=== PATIENT | female | born 1950 | race Caucasian/White ===

== ENCOUNTER 2016-10-22 16:01 | Outpatient (CLI) | payer MEDICARE, OTHER | END 2016-10-22 16:02 | disposition home or self-care (01) | DX: Z72.89 Other problems related to lifestyle (principal) ==

== ENCOUNTER 2016-11-16 12:45 | Outpatient (CLI) | payer MEDICARE, OTHER | END 2016-11-16 12:46 | disposition home or self-care (01) | DX: M85.88 Other specified disorders of bone density and structure, other site (principal); Z78.0 Asymptomatic menopausal state ==

== ENCOUNTER 2016-11-22 10:27 | Emergency (ER) | payer MEDICARE, OTHER ==
[2016-11-22] MEDS ORDERED: DEXAMETHASONE 10 MG/ML VIAL ONE (12:09)
[2016-11-22] MEDS ORDERED: CHERRY SYRUP 10 ML UDC PO ONE (12:09)
[2016-11-22] MEDS ORDERED: DEXAMETHASONE 10 MG/ML VIAL PO STA (12:09)
== END 2016-11-22 12:21 | disposition home or self-care (01) ==
DX: H66.001 Acute suppurative otitis media without spontaneous rupture of ear drum, right ear (principal); I10 Essential (primary) hypertension; Z79.82 Long term (current) use of aspirin
CPT/HCPCS: 71020; 99283; A9270

== ENCOUNTER 2017-02-23 15:08 | Outpatient (CLI) | payer MEDICARE, OTHER | END 2017-02-23 15:09 | disposition home or self-care (01) | DX: M25.571 Pain in right ankle and joints of right foot (principal); M16.11 Unilateral primary osteoarthritis, right hip ==

== ENCOUNTER 2017-03-12 12:31 | Outpatient (CLI) | payer MEDICARE, OTHER ==
--- NOTE | 2017-03-12 15:30 | XRAY Report ---
THREE VIEW LUMBAR SPINE: 03/12/2017 CLINICAL INDICATION: Back pain. FINDINGS: AP, lateral, and coned down views of the lumbar spine demonstrate degenerative disk and fa cet disease, with disk space narrowing worst at L5-S1, stable from 09/06/2009. There is no evidence o f interval fracture or subluxation. IMPRESSION: STABLE DEGENERATIVE CHANGES. NO EVIDENCE OF INTERVAL FRACTURE. JOB #: [id number] EXT JOB #:[id number]
== END 2017-03-12 12:32 | disposition home or self-care (01) ==
LOC: DI 12:31
PROVIDERS: ATTEND Physician Assistant Medical
DX: M51.36 Other intervertebral disc degeneration, lumbar region (principal); M47.896 Other spondylosis, lumbar region
CPT/HCPCS: 72100

== ENCOUNTER 2017-03-26 13:18 | Outpatient (CLI) | payer MEDICARE, OTHER ==
--- NOTE | 2017-03-26 16:03 | MRI Report ---
EXAM: MRI LUMBAR SPINE WITHOUT CONTRAST EXAM DATE: 03/26/2017 01:30 PM. CLINICAL HISTORY: Low back pain. Right buttock pain. Lumbar radiculopathy. Right lower extremity numb ness. COMPARISON: None. TECHNIQUE: Multiplanar, multisequence T1-weighted and fluid-sensitive sequences of the lumbar spine f rom T12 to S1 without contrast. Other: None. FINDINGS: Spinal Cord: The conus terminates at L1. No signal abnormality in the visualized spinal cord. Alignment: Minimal to mild degenerative L2 on L3 retrolisthesis. Bone Marrow: Five cwl-izk-apzyeol lumbar vertebral bodies are assumed. Incidental L2 vertebral body h emangioma. Mild to moderate chronic L5-S1 level typed 2 degenerative endplate signal changes. Disk Levels/Facets: T12-L1: Unremarkable. L1-L2: Unremarkable. L2-L3: Mild degenerative disk disease and facet arthropathy. Anterior marginal spurring. Broad-based disk bulge extending laterally into both foramina. Minimal foraminal stenosis, no intraforaminal nerv e root impingement. Patent central canal. L3-L4: Minimally narrowed disk space. Unremarkable facets. Shallow diffuse annular disk bulge, no foc al extrusion. No stenosis. L4-L5: Mild degenerative disk disease. Mild/moderate facet arthropathy. Minimal diffuse annular disk bulge. No focal disk extrusion. Patent central canal. Mild bilateral foraminal stenosis without evide nce for intraforaminal nerve root compression. L5-S1: Moderate degenerative disk disease. Unremarkable facets. Shallow diffuse annular disk bulge. M inimal marginal spurring. Widely patent central canal. Mild to moderate bilateral foraminal stenosis right greater than left. Musculature: Mild diffuse posterior paraspinal muscle fatty atrophy. Other: None. IMPRESSION: 1. Relatively mild degenerative foraminal stenosis is present at multiple lumbar levels, this is most prominent at L5-S1, right greater than left. 2. Moderately prominent chronic degenerative disk disease at L5-S1. 3. Minimal to mild degenerative L2 on L3 retrolisthesis. 4. Mild broad-based bulges at multiple levels but no evidence for acute or focal extruded disk fragme nt. 5. No lumbar central canal stenosis. 6. Multilevel relatively mild lumbar facet arthropathy most prominent at the L2-L3 and L4-L5 levels. Comment: The following findings are so common in adults without low back pain that while we report th eir presence, they must be interpreted with caution and in the context of the clinical situation. (Re ki Madsen et al, Spine 2001) Prevalence of findings in patients without low back pain: Disk degeneration (any evidence): 92% Disk desiccation/T2 signal loss: 83% Disk height loss: 56% Disk bulge: 64% Disk protrusion: 32% Annular tear/high intensity zone: 38% [facility] Referring Provider Line: [phone] SITE ID: [id number]
== END 2017-03-26 13:19 | disposition home or self-care (01) ==
LOC: DI 13:18
PROVIDERS: ATTEND Physician Assistant Medical
DX: M51.36 Other intervertebral disc degeneration, lumbar region (principal); M51.37 Other intervertebral disc degeneration, lumbosacral region; M43.17 Spondylolisthesis, lumbosacral region; M47.896 Other spondylosis, lumbar region
CPT/HCPCS: 72148

== ENCOUNTER 2017-08-20 06:12 | Outpatient (CLI) | payer MEDICARE, OTHER ==
[2017-08-20 06:44] LABS: BASOPHILS # (AUTO) 0.1 10^3/uL (0.0-0.1); BASOPHILS % (AUTO) 1.1 %; EOSINOPHILS # (AUTO) 0.3 10^3/uL (0.0-0.7); EOSINOPHILS % (AUTO) 6.6 %; HCT - HEMATOCRIT 42.6 % (37.0-47.0); HGB - HEMOGLOBIN 14.4 g/dL (12.0-16.0); LYMPHOCYTES # (AUTO) 1.3 10^3/uL (1.5-3.5); LYMPHOCYTES % (AUTO) 28.4 %; MEAN CORPUSCULAR HEMOGLOBIN 31.1 pg (27.0-31.0); MEAN CORPUSCULAR HGB CONC 33.8 g/dL (32.0-36.0); MEAN CORPUSCULAR VOLUME 91.9 fL (81.0-99.0); MONOCYTES # (AUTO) 0.4 10^3/uL (0.0-1.0); MONOCYTES % (AUTO) 8.5 %; NEUTROPHILS # (AUTO) 2.5 10^3/uL (1.5-6.6); NEUTROPHILS % (AUTO) 55.4 %; RED BLOOD COUNT 4.64 10^6/uL (4.20-5.40); RED CELL DISTRIBUTION WIDTH 12.6 % (12.0-15.0); UNCORRECTED WHITE BLOOD COUNT 4.5 x10^3/uL; WHITE BLOOD COUNT 4.5 x10^3/uL (4.8-10.8)
[2017-08-20 06:58] LABS: ALBUMIN/GLOBULIN RATIO 1.4 (1.0-2.2); BILIRUBIN,TOTAL 0.5 mg/dL (0.2-1.0); BUN - BLOOD UREA NITROGEN 26 mg/dL (6-20); CALCIUM 9.8 mg/dL (8.5-10.3); CARBON DIOXIDE - CO2 26 mmol/L (21-32); CHLORIDE 106 mmol/L (101-111); CHOL/HDL RATIO 2.7 (<4.4); CHOLESTEROL 170 mg/dL; CREATININE 0.6 mg/dL (0.4-1.0); GFR - MDRD 100 (>89); GLUCOSE 110 mg/dL (70-100); HDL CHOLESTEROL 63 mg/dL; LDL/HDL RATIO 1.4 (<4.4); POTASSIUM 4.1 mmol/L (3.5-5.0); SODIUM 142 mmol/L (135-145); TRIGLYCERIDES 102 mg/dL; VLDL CHOLESTEROL 20 mg/dL
[2017-08-20 08:51] LABS: HEMOGLOBIN A1C 0.57 g/dL
== END 2017-08-20 06:13 | disposition home or self-care (01) ==
LOC: LAB 06:12
PROVIDERS: ATTEND Nurse Practitioner Primary Care
DX: M81.0 Age-related osteoporosis without current pathological fracture (principal); R73.9 Hyperglycemia, unspecified; I10 Essential (primary) hypertension; Z79.899 Other long term (current) drug therapy; E78.5 Hyperlipidemia, unspecified
CPT/HCPCS: 36415; 80053; 80061; 82306; 83036; 85025

== ENCOUNTER 2018-09-01 07:21 | Outpatient (CLI) | payer MEDICARE, OTHER ==
[2018-09-01 07:41] LABS: BASOPHILS % (AUTO) 0.5 %; EOSINOPHILS # (AUTO) 0.2 10^3/uL (0.0-0.7); EOSINOPHILS % (AUTO) 2.5 %; HGB - HEMOGLOBIN 14.6 g/dL (12.0-16.0); LYMPHOCYTES % (AUTO) 14.3 %; MEAN CORPUSCULAR HEMOGLOBIN 31.1 pg (27.0-31.0); MEAN CORPUSCULAR HGB CONC 33.7 g/dL (32.0-36.0); MEAN CORPUSCULAR VOLUME 92.2 fL (81.0-99.0); MEAN PLATELET VOLUME 8.3 fL (7.9-10.8); MONOCYTES # (AUTO) 0.8 10^3/uL (0.0-1.0); MONOCYTES % (AUTO) 11.5 %; NEUTROPHILS % (AUTO) 71.2 %; PLT - PLATELET COUNT 208 10^3/uL (130-450); RED BLOOD COUNT 4.69 10^6/uL (4.20-5.40); RED CELL DISTRIBUTION WIDTH 13.5 % (12.0-15.0)
[2018-09-01 07:54] LABS: ALBUMIN 4.6 g/dL (3.2-5.5); ALBUMIN/GLOBULIN RATIO 1.7 (1.0-2.2); ALKALINE PHOSPHATASE 92 IU/L (42-121); ALT ALANINE AMINOTRANSFERASE 29 IU/L (10-60); AST ASPARTATE AMINOTRANSFERASE 22 IU/L (10-42); BILIRUBIN,TOTAL 0.9 mg/dL (0.2-1.0); BUN - BLOOD UREA NITROGEN 18 mg/dL (6-20); CALCIUM 9.5 mg/dL (8.5-10.3); CARBON DIOXIDE - CO2 28 mmol/L (21-32); CHLORIDE 103 mmol/L (101-111); CHOL/HDL RATIO 2.6 (<4.4); CHOLESTEROL 183 mg/dL; CREATININE 0.6 mg/dL (0.4-1.0); GFR - MDRD 100 (>89); GLUCOSE 102 mg/dL (70-100); HDL CHOLESTEROL 70 mg/dL; LDL CHOLESTEROL,CALCULATED 99 mg/dL; LDL/HDL RATIO 1.4 (<4.4); SODIUM 138 mmol/L (135-145); TOTAL PROTEIN 7.3 g/dL (6.7-8.2); VLDL CHOLESTEROL 14 mg/dL
[2018-09-01 08:14] LABS: HB2 TOTAL 15.7 g/dL; HEMOGLOBIN A1C 0.56 g/dL; HEMOGLOBIN A1C % 5.4 % (4.6-6.2)
== END 2018-09-01 07:22 | disposition home or self-care (01) ==
LOC: LAB 07:21
PROVIDERS: ATTEND Nurse Practitioner Primary Care
DX: M81.0 Age-related osteoporosis without current pathological fracture (principal); R73.9 Hyperglycemia, unspecified; I10 Essential (primary) hypertension; Z79.899 Other long term (current) drug therapy; E78.2 Mixed hyperlipidemia
CPT/HCPCS: 36415; 80053; 80061; 82306; 83036; 83721; 85025

== ENCOUNTER 2018-11-10 14:55 | Outpatient (CLI) | payer MEDICARE, OTHER ==
--- NOTE | 2018-11-11 09:23 | DEXA Report ---
Reason: OSTEOPOROSIS Procedure Date: 11/10/2018 Accession Number: [id number] / [id number] Procedure: DEX - Dexa Spine and/or Hip CPT Code: FULL RESULT: EXAM: Dexa Spine and/or Hip DATE: 11/10/2018 4:16 PM CLINICAL HISTORY: OSTEOPOROSIS TECHNIQUE: Dual energy x-ray absorptiometry (DXA) was performed on a [employer] System. Regions measured are the AP Spine, femoral neck, and if needed forearm. COMPARISON: 11/16/2016. In accordance with the International Society for Clinical Densitometry (ISCD) guidelines, data from previous exams may be reanalyzed using current recommendations and techniques. This is done to allow a more accurate basis for comparison with the current study. FINDINGS: The data for the lumbar spine is as follows: BMD (g/cm/cm) T-SCORE Z-SCORE REGION L1 0.839 -2.4 -1.2 L2 0.937 -2.2 -1.0 L3 1.031 -1.4 -0.2 L4 1.004 -1.6 -0.4 TOTAL 0.960 -1.8 -0.6 NOTE: All evaluable vertebrae are used for classification The data for the hip is as follows: BMD (g/cm/cm) T-SCORE Z-SCORE REGION Neck 0.959 -0.6 0.7 TOTAL 0.968 -0.3 0.7 NOTE: The femoral neck or total proximal femur, whichever is lowest, is used for classification. DXA RESULTS SUMMARY: Spine SCAN DATE AGE BMD CHANGE VS CHANGE VS PREVIOUS PREVIOUS % [birth year][age]10/2018 [age] 0.960 -0.033* -3.3* 11/16/2016 [age] 0.993 * Denotes significant change at the 95% confidence level. Denotes dissimilar scan types or analysis methods. DXA RESULTS SUMMARY: Hip SCAN DATE AGE BMD CHANGE VS CHANGE VS PREVIOUS PREVIOUS % [birth year]10/2018 68.3 0.968 0.018 1.9 11/16/2016 66.3 0.950 * Denotes significant change at the 95% confidence level. Denotes dissimilar scan types or analysis methods. IMPRESSION: THE WHO CLASSIFICATION BASED ON THE INTERNATIONAL REFERENCE STANDARD IS OSTEOPENIA. THE FRACTURE RISK IS INCREASED. RECOMMENDATION: Patients with diagnosis of osteoporosis or osteopenia should have regular bone mineral density assessment. For those eligible for Medicare, routine testing is allowed once every 2 years. Testing frequency can be increased for patients who have rapidly progressing disease or for those who are receiving medical therapy to restore bone mass. COMMENT: World Health Organization (WHO) definitions for osteoporosis and osteopenia: NORMAL BMD: T-score at -1.0 or higher, fracture risk is low OSTEOPENIA BMD: T-score between -1.0 and -2.5, fracture risk is increased. OSTEOPOROSIS BMD: T-score at -2.5 or lower, fracture risk is high. National Osteoporosis Foundation recommends: 1. Obtain adequate dietary calcium (at least 1200 mg per day) and vitamin D (400-800 international units per day). 2. Participate, as appropriate, in regular weightbearing and muscle-strengthening exercise. 3. Avoid tobacco use and reduce alcohol and caffeine intake. 4. For more detailed information see the website at www.NOF.org.
== END 2018-11-10 14:56 | disposition home or self-care (01) ==
LOC: DI 14:55
PROVIDERS: ATTEND Nurse Practitioner Primary Care
DX: M85.88 Other specified disorders of bone density and structure, other site (principal); Z78.0 Asymptomatic menopausal state
CPT/HCPCS: 77080

== ENCOUNTER 2019-04-25 15:44 | Outpatient (CLI) | payer MEDICARE, OTHER ==
--- NOTE | 2019-04-26 12:17 | XRAY Report ---
Reason: PAIN IN BALL OF R FOOT Procedure Date: 04/25/2019 Accession Number: [id number] / [id number] Procedure: XR - Foot 3 View RT CPT Code: FULL RESULT: EXAM: RIGHT FOOT RADIOGRAPHY EXAM DATE: 04/25/2019 04:19 PM. CLINICAL HISTORY: Pain in ball of right foot. COMPARISON: None. TECHNIQUE: 3 views. FINDINGS: Bones: No significant calcaneal spurring is seen. Best seen on the oblique view is observation of sharp angulations of a portion of the sesamoid bones, and there are osteophytes plantar to the first metatarsophalangeal articulation. While this is not clearly demonstrated, this can be seen with sesamoid fracture. No other fracture or dislocation is identified. Joints: Normal. No subluxations. Soft Tissues: No radiopaque foreign body or soft tissue gas. No soft tissue swelling. IMPRESSION: Question potential fracture of a first metatarsophalangeal sesamoid. [facility]
== END 2019-04-25 15:45 | disposition home or self-care (01) ==
LOC: DI 15:44
PROVIDERS: ATTEND Podiatrist
DX: M79.671 Pain in right foot (principal)

== ENCOUNTER 2021-03-25 14:17 | Outpatient (CLI) | payer MEDICARE, OTHER ==
--- NOTE | 2021-03-25 15:53 | DEXA Report ---
PROCEDURE: Dexa Spine and/or Hip INDICATIONS: DISORDER OF BONE DENSITY STRUCTURES OTHER SITE TECHNIQUE: Dual energy x-ray absorptiometry (DXA) was performed on a [employer] System. Regions measur ed are the AP Spine, femoral neck, and if needed forearm. COMPARISON: Dexa, 11/10/2018.. FINDINGS: Lumbar Spine: Bone Mineral Density 0.992 g/cm/cm,T score -1.6, osteopenic Left Hip: Bone Mineral Density 0.902 g/cm/cm,T score -0.8, normal Left Femoral Neck: Bone Mineral Density 0.934 g/cm/cm, T score -0.7, normal (T score greater or equal to -1.0: NORMAL) (T score from -1.1 to -2.4: OSTEOPENIA) (T score less than or equal to -2.5 to: OSTEOPOROSIS) Impression: Based on WHO criteria, the patient is osteopenic. Compared with the last exam on 9, the patient's bone mineral density of the lumbar spine is improved and bone mineral density of lef t hip is decreased. Patients with diagnosis of osteoporosis or osteopenia should have regular bone mineral density assess ment. For those eligible for Medicare, routine testing is allowed once every 2 years. Testing frequ ency can be increased for patients who have rapidly progressing disease or for those who are receivin g medical therapy to restore bone mass. Reviewed by: Raegan Barton MD on 03/25/2021 3:52 PM PDT Approved by: Raegan Barton MD on 03/25/2021 3:52 PM PDT Station ID: [id number]
== END 2021-03-25 14:18 | disposition home or self-care (01) ==
LOC: DI 14:17
PROVIDERS: ATTEND Internal Medicine
DX: M85.88 Other specified disorders of bone density and structure, other site (principal)

== ENCOUNTER 2021-06-06 16:23 | Emergency (ER) | payer MEDICARE, OTHER ==
[2021-06-06] MEDS ORDERED: ASPIRIN CHEW 81 MG TABLET PO STA (16:49)
[2021-06-06] MEDS ORDERED: LIDOCAINE VISCOUS 2% 15 ML UDC MM STA (16:50)
[2021-06-06] MEDS ORDERED: MAG HYDROX/AL HYDROX/SIMETH 30 ML UDC PO STA (16:50)
--- NOTE | 2021-06-06 16:51 | ED Physician Documentation ---
PD HPI CHEST PAIN - Stated complaint Stated Complaint: CP - Chief complaint Chief Complaint: Cardiac - History obtained from History obtained from: Patient - Additional information Additional information: 70-year-old woman with no known history of coronary disease, very remotely negative stress testing. Remote history of tobacco use, maybe 20 years 25 years ago. History of hypertension and hyperlipidemia. She had a hamburger around noon at about 1:00 developed substernal chest pressure which was nonradiating. It is milder now but still present to an extent. She is also had some nonexertional intermittent shortness of breath for the last week and a half which prompted a negative Covid test 5 days ago. No cough. No travel, no recent pedal edema, no calf pain. Pain is nonradiating. She had similar pains in the past which resolved with Tums, it did not this time. 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 - Present Medications Home Medications: Ambulatory Orders Medication Instructions Recorded Confirmed Aspirin [Deepika Chewable Aspirin] 162 01/24/16 Atorvastatin [Lipitor] 20 01/24/16 Lisinopril 01/24/16 busPIRone [Buspar] 10 01/24/16 Azithromycin [Zithromax] 250 mg PO DAILY #6 tablet 11/22/16 Benzonatate [Tessalon] 100 - 200 mg PO TID PRN #20 capsule 11/22/16 - Allergies Allergies/Adverse Reactions: Allergies Allergy/AdvReac Type Severity Reaction Status Date / Time codeine AdvReac Unknown Verified 06/06/21 16:43 - Social History Does the pt smoke?: No Smoking Status: Never smoker Does the pt drink ETOH?: Yes Does the pt have substance abuse?: No - POLST Patient has POLST: No PD ED PE NORMAL - Vitals Vital signs reviewed: Yes - General General: Alert and oriented X 3, No acute distress - HEENT HEENT: PERRL, EOMI - Neck Neck: Supple, no meningeal sign, No bony TTP - Cardiac Cardiac: No murmur, Other (mild tachycardia) - Respiratory Respiratory: No respiratory distress, Clear bilaterally - Abdomen Abdomen: Non tender - Extremities Extremities: No edema, No calf tenderness / cord - Neuro Neuro: Alert and oriented X 3, Normal speech - Psych Psych: Normal mood, Normal affect Results - Vitals Vitals: Vital Signs - 24 hr 06/06/21 06/06/21 06/06/21 16:38 16:52 16:57 Temperature 36.4 C L 36.6 C Heart Rate 103 H 102 H 95 Respiratory 16 16 21 Rate Blood Pressure 165/88 H 165/88 H 165/88 H O2 Saturation 100 98 95 06/06/21 06/06/21 06/06/21 17:09 17:13 17:43 Temperature Heart Rate 102 H 94 92 Respiratory 14 22 22 Rate Blood Pressure 157/123 H 167/79 H 150/83 H O2 Saturation 97 98 97 Oxygen O2 Source Room air - EKG (time done) 1632 Rate: Rate (enter#) (102) Rhythm: Sinus tachycardia [place]: Normal Intervals: Prolonged VT QRS: Normal Ischemia: Normal ST segments - Labs Labs: Laboratory Tests 06/06/21 06/06/21 06/06/21 16:58 16:58 16:58 WBC 9.1 RBC 4.91 Hgb 14.9 Hct 44.9 MCV 91.4 MCH 30.3 MCHC 33.2 RDW 12.7 Plt Count 246 MPV 10.6 Neut # (Auto) 6.8 H Lymph # (Auto) 1.2 L [place] # (Auto) 0.8 Eos # (Auto) 0.2 Baso # (Auto) 0.1 Absolute Nucleated RBC 0.00 Nucleated RBC % 0.0 D-Dimer 478.2 H Sodium 142 Potassium 4.4 Chloride 103 Carbon Dioxide 29 Anion Gap 10.0 BUN 33 H Creatinine 0.7 Estimated GFR (MDRD) 83 L Glucose 104 H Calcium 10.3 Total Bilirubin 0.7 AST 22 ALT 32 Alkaline Phosphatase 81 Troponin I High Sens Total Protein 7.6 Albumin 4.4 Globulin 3.2 Albumin/Globulin Ratio 1.4 Lipase 36 06/06/21 16:58 WBC RBC Hgb Hct MCV MCH MCHC RDW Plt Count MPV Neut # (Auto) Lymph # (Auto) [place] # (Auto) Eos # (Auto) Baso # (Auto) Absolute Nucleated RBC Nucleated RBC % D-Dimer Sodium Potassium Chloride Carbon Dioxide Anion Gap BUN Creatinine Estimated GFR (MDRD) Glucose Calcium Total Bilirubin AST ALT Alkaline Phosphatase Troponin I High Sens 4.4 Total Protein Albumin Globulin Albumin/Globulin Ratio Lipase - Rads (name of study) CTA Chest Radiology: EMP read contemporaneously (gallstones, but NAD, no PE) PD MEDICAL DECISION MAKING - ED course ED course: 70-year-old woman presents with substernal pain after eating. Has had it in the past which usually resolves with Tums but did not this time. After the administration of a GI cocktail she was better. She was modestly tachycardic so a D-dimer was done and positive followed by CT angiography of the chest, negative for PE but positive for gallstones and this was discussed with her. Given the location of her pain I do not think the gallstones are causative of her today's pain. Departure - Departure Disposition: 01 Home, Self Care Clinical Impression: Chest pain Qualifiers: Chest pain type: chest pain on breathing Qualified Code(s): R07.1 - Chest pain on breathing; R07.81 - Pleurodynia Condition: Good Record reviewed to determine appropriate education?: Yes Instructions: ED Chest Pain NonCardiac Comments: We did note today that incidentally you have gallstones, no need for specific follow-up for this now unless you start to develop upper abdominal and right- sided abdominal pain after eating. Return for new or worsening symptoms. Follow-up with your primary care physician, next available appointment for consideration for repeat stress testing.
[2021-06-06 17:05] LABS: BASOPHILS # (AUTO) 0.1 10^3/uL (0.0-0.1); BASOPHILS % (AUTO) 0.5 %; EOSINOPHILS # (AUTO) 0.2 10^3/uL (0.0-0.7); EOSINOPHILS % (AUTO) 2.3 %; HCT - HEMATOCRIT 44.9 % (37.0-47.0); HGB - HEMOGLOBIN 14.9 g/dL (12.0-16.0); LYMPHOCYTES # (AUTO) 1.2 10^3/uL (1.5-3.5); LYMPHOCYTES % (AUTO) 12.9 %; MEAN CORPUSCULAR HEMOGLOBIN 30.3 pg (27.0-31.0); MEAN CORPUSCULAR HGB CONC 33.2 g/dL (32.0-36.0); MEAN CORPUSCULAR VOLUME 91.4 fL (81.0-99.0); MEAN PLATELET VOLUME 10.6 fL (7.9-10.8); MONOCYTES # (AUTO) 0.8 10^3/uL (0.0-1.0); MONOCYTES % (AUTO) 9.2 %; NEUTROPHILS # (AUTO) 6.8 10^3/uL (1.5-6.6); NEUTROPHILS % (AUTO) 74.9 %; PLT - PLATELET COUNT 246 10^3/uL (130-450); RED BLOOD COUNT 4.91 10^6/uL (4.20-5.40); RED CELL DISTRIBUTION WIDTH 12.7 % (12.0-15.0); WHITE BLOOD COUNT 9.1 x10^3/uL (4.8-10.8)
--- NOTE | 2021-06-06 17:15 | XRAY Report ---
PROCEDURE: Chest 1 View X-Ray INDICATIONS: Chest Pain TECHNIQUE: One view of the chest was acquired. COMPARISON: 11/1216 FINDINGS: Surgical changes and devices: None. Lungs and pleura: No pleural effusions or pneumothorax. Lungs are clear. Mediastinum: Mediastinal contours appear normal. Heart size is normal. Bones and chest wall: Probable enchondroma in the proximal right humerus is stable. No suspicious jovany ny lesions. Overlying soft tissues appear unremarkable. IMPRESSION: No acute cardiopulmonary disease process. Reviewed by: Cathy Marshall MD, PhD on 06/06/2021 5:14 PM PDT Approved by: Cathy Marshall MD, PhD on 06/06/2021 5:14 PM PDT Station ID: [id number]
[2021-06-06] MEDS ORDERED: IOPAMIDOL-300 50 ML VIAL ONE (17:26)
[2021-06-06 17:36] LABS: ALBUMIN 4.4 g/dL (3.2-5.5); ALBUMIN/GLOBULIN RATIO 1.4 (1.0-2.2); BILIRUBIN,TOTAL 0.7 mg/dL (0.2-1.0); CALCIUM 10.3 mg/dL (8.5-10.3); CREATININE 0.7 mg/dL (0.4-1.0); POTASSIUM 4.4 mmol/L (3.5-5.0); TOTAL PROTEIN 7.6 g/dL (6.7-8.2)
[2021-06-06 17:44] VITALS: BP 150/83
[2021-06-06] MEDS ORDERED: IOPAMIDOL-300 50 ML VIAL IVP ONE (18:09)
--- NOTE | 2021-06-06 18:28 | CT Report ---
PROCEDURE: ANGIO CHEST W/WO INDICATIONS: dyspnea, cp high dimer, pe protocol CONTRAST: IV CONTRAST: Isovue 300 ml: 80 PO CONTRAST: *NO PO CONTRAST TECHNIQUE: After the administration of intravenous contrast, images were acquired from the pulmonary apices to t he posterior costophrenic angles. 3-dimensional maximum intensity projection (MIP) coronal and sagit victor m reformats were then acquired through the thorax. For radiation dose reduction, the following was used: automated exposure control, adjustment of mA and/or kV according to patient size. COMPARISON: Chest x-ray 06/06/2021. FINDINGS: Image quality: Excellent. Pulmonary arteries: Pulmonary arteries are normal in size, and demonstrate no intraluminal filling d efects to suggest central pulmonary embolism. Lungs and pleura: Atelectasis noted in the left lung base. No pleural effusions or pneumothorax. Dex tral and peripheral airways are patent. Mediastinum: Heart size is normal, without pericardial effusion. Atherosclerotic calcifications note d in the aorta, great vessels and coronary vasculature. No mediastinal or hilar adenopathy. Thoraci c aorta is normal in caliber and enhancement. Esophagus is normal in caliber, without hiatal hernia. Bones and chest wall: No suspicious bony lesions. Ribs and thoracic spine appear intact throughout. The spine No axillary or supraclavicular adenopathy. The thyroid is normal in size and there are no incidental findings. Abdomen: Multiple calcified gallstones. Visualized upper abdominal solid organs appear normal in the early arterial phase of enhancement. IMPRESSION: 1. No pulmonary metastases. 2. No lung consolidation or pleural effusions. Reviewed by: Cathy Marshall MD, PhD on 06/06/2021 6:27 PM PDT Approved by: Cathy Marshall MD, PhD on 06/06/2021 6:27 PM PDT Station ID: [id number]
== END 2021-06-06 19:19 | disposition home or self-care (01) ==
LOC: ED 16:23
DX: R07.81 Pleurodynia (principal); R00.0 Tachycardia, unspecified; K80.20 Calculus of gallbladder without cholecystitis without obstruction; Z87.891 Personal history of nicotine dependence
CPT/HCPCS: 36415; 71045; 71275; 80053; 83690; 84484; 85025; 85379; 93005; 99284; A9270; Q9967

== ENCOUNTER 2021-07-29 06:18 | Outpatient (CLI) | payer MEDICARE, OTHER ==
[2021-07-29 07:13] LABS: ALBUMIN 4.4 g/dL (3.2-5.5); ALBUMIN/GLOBULIN RATIO 1.5 (1.0-2.2); ALKALINE PHOSPHATASE 73 IU/L (42-121); ALT ALANINE AMINOTRANSFERASE 29 IU/L (10-60); AST ASPARTATE AMINOTRANSFERASE 21 IU/L (10-42); BILIRUBIN,TOTAL 0.7 mg/dL (0.2-1.0); BUN - BLOOD UREA NITROGEN 27 mg/dL (6-20); CALCIUM 9.8 mg/dL (8.5-10.3); CARBON DIOXIDE - CO2 28 mmol/L (21-32); CHLORIDE 104 mmol/L (101-111); CHOL/HDL RATIO 3.1 (<4.4); CHOLESTEROL 200 mg/dL; CREATININE 0.7 mg/dL (0.4-1.0); GFR - MDRD 83 (>89); GLUCOSE 98 mg/dL (70-100); HDL CHOLESTEROL 64 mg/dL; LDL CHOLESTEROL,CALCULATED 117 mg/dL; LDL/HDL RATIO 1.8 (<4.4); POTASSIUM 4.2 mmol/L (3.5-5.0); SODIUM 139 mmol/L (135-145); TOTAL PROTEIN 7.3 g/dL (6.7-8.2); TRIGLYCERIDES 96 mg/dL; VLDL CHOLESTEROL 19 mg/dL
[2021-07-29 07:50] LABS: ESTIMATED AVERAGE GLUCOSE 114 mg/dL (70-100); HEMOGLOBIN A1c% 5.6 % (4.27-6.07)
== END 2021-07-29 06:19 | disposition home or self-care (01) ==
LOC: LAB 06:18
PROVIDERS: ATTEND Internal Medicine
DX: I10 Essential (primary) hypertension (principal); R73.03 Prediabetes; E78.5 Hyperlipidemia, unspecified
CPT/HCPCS: 36415; 80053; 80061; 83036; 83721

== ENCOUNTER 2022-09-08 08:00 | Outpatient (CLI) | payer MEDICARE, OTHER ==
[2022-09-08 07:06] LABS: EOSINOPHILS # (AUTO) 0.2 10^3/uL (0.0-0.7); EOSINOPHILS % (AUTO) 4.1 %; HCT - HEMATOCRIT 46.1 % (37.0-47.0); HGB - HEMOGLOBIN 15.1 g/dL (12.0-16.0); LYMPHOCYTES # (AUTO) 0.9 10^3/uL (1.5-3.5); LYMPHOCYTES % (AUTO) 22.4 %; MEAN CORPUSCULAR HEMOGLOBIN 30.1 pg (27.0-31.0); MEAN CORPUSCULAR HGB CONC 32.8 g/dL (32.0-36.0); MEAN PLATELET VOLUME 10.3 fL (7.9-10.8); MONOCYTES # (AUTO) 0.5 10^3/uL (0.0-1.0); MONOCYTES % (AUTO) 11.5 %; NEUTROPHILS # (AUTO) 2.5 10^3/uL (1.5-6.6); NEUTROPHILS % (AUTO) 60.8 %; PLT - PLATELET COUNT 220 10^3/uL (130-450); RED BLOOD COUNT 5.01 10^6/uL (4.20-5.40); RED CELL DISTRIBUTION WIDTH 12.4 % (12.0-15.0); WHITE BLOOD COUNT 4.2 x10^3/uL (4.8-10.8)
[2022-09-08 07:24] LABS: ALBUMIN 4.3 g/dL (3.2-5.5); ALBUMIN/GLOBULIN RATIO 1.5 (1.0-2.2); ALKALINE PHOSPHATASE 71 IU/L (42-121); ALT ALANINE AMINOTRANSFERASE 23 IU/L (10-60); AST ASPARTATE AMINOTRANSFERASE 19 IU/L (10-42); BILIRUBIN,TOTAL 0.6 mg/dL (0.2-1.0); BUN - BLOOD UREA NITROGEN 30 mg/dL (6-20); CALCIUM 9.8 mg/dL (8.5-10.3); CARBON DIOXIDE - CO2 28 mmol/L (21-32); CHLORIDE 104 mmol/L (101-111); CHOL/HDL RATIO 3.1 (<4.4); CHOLESTEROL 192 mg/dL; CREATININE 0.7 mg/dL (0.4-1.0); GFR - MDRD 82 (>89); GLUCOSE 111 mg/dL (70-100); HDL CHOLESTEROL 61 mg/dL; LDL CHOLESTEROL,CALCULATED 111 mg/dL; LDL/HDL RATIO 1.8 (<4.4); POTASSIUM 4.4 mmol/L (3.5-5.0); SODIUM 140 mmol/L (135-145); TOTAL PROTEIN 7.1 g/dL (6.7-8.2); TRIGLYCERIDES 102 mg/dL; VLDL CHOLESTEROL 20 mg/dL
[2022-09-08 12:26] LABS: ESTIMATED AVERAGE GLUCOSE 114 mg/dL (70-100); HEMOGLOBIN A1c% 5.6 % (4.27-6.07)
== END 2022-09-08 23:59 | disposition home or self-care (01) ==
LOC: LAB 08:00
DX: Z00.00 Encounter for general adult medical examination without abnormal findings (principal)
CPT/HCPCS: 36415; 80053; 80061; 83036; 83721; 84443; 85025

== ENCOUNTER 2023-08-03 02:42 | Emergency (ER) | payer MEDICARE, OTHER ==
[2023-08-03 03:24] LABS: BASOPHILS % (AUTO) 0.9 %; EOSINOPHILS # (AUTO) 0.1 10^3/uL (0.0-0.7); EOSINOPHILS % (AUTO) 3.1 %; HCT - HEMATOCRIT 43.4 % (37.0-47.0); HGB - HEMOGLOBIN 14.3 g/dL (12.0-16.0); LYMPHOCYTES # (AUTO) 1.4 10^3/uL (1.5-3.5); LYMPHOCYTES % (AUTO) 31.2 %; MEAN CORPUSCULAR HEMOGLOBIN 30.2 pg (27.0-31.0); MEAN CORPUSCULAR HGB CONC 32.9 g/dL (32.0-36.0); MEAN CORPUSCULAR VOLUME 91.8 fL (81.0-99.0); MEAN PLATELET VOLUME 10.2 fL (7.9-10.8); MONOCYTES # (AUTO) 0.5 10^3/uL (0.0-1.0); MONOCYTES % (AUTO) 11.6 %; NEUTROPHILS # (AUTO) 2.4 10^3/uL (1.5-6.6); PLT - PLATELET COUNT 200 10^3/uL (130-450); RED BLOOD COUNT 4.73 10^6/uL (4.20-5.40); RED CELL DISTRIBUTION WIDTH 13.2 % (12.0-15.0); WHITE BLOOD COUNT 4.6 x10^3/uL (4.8-10.8)
[2023-08-03 03:43] LABS: ALBUMIN 4.4 g/dL (3.2-5.5); ALBUMIN/GLOBULIN RATIO 1.6 (1.0-2.2); BILIRUBIN,TOTAL 0.5 mg/dL (0.2-1.0); CALCIUM 9.9 mg/dL (8.5-10.3); CREATININE 0.7 mg/dL (0.6-1.3); POTASSIUM 3.9 mmol/L (3.5-4.5); TOTAL PROTEIN 7.1 g/dL (6.4-8.9)
[2023-08-03] MEDS ORDERED: SODIUM CHLORIDE 0.9% 1,000 ML IV STA (03:49)
[2023-08-03 05:05] VITALS: BP 186/74; O2SAT 100
[2023-08-03] MEDS ORDERED: iohexoL-300 100 ML VIAL IVP ONE (05:10)
--- NOTE | 2023-08-03 05:52 | ED Physician Documentation ---
History of Present Illness - Stated complaint Stated Complaint: SOA - Chief complaint Chief Complaint: Resp - Additonal information Additional information: Patient 73-year-old female presenting to the emergency department shortness of breath. Reports has been having episodes of shortness of breath that of ongoing for several months. Had an echocardiogram performed by primary care recently. This evening had an episode where she became short of breath. There is no associated fever, cough, congestion, chest pain. Has a history of ductal carcinoma of breast and reports that she is currently being evaluated for vulvar carcinoma NOS. 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 - Present Medications Home Medications: Ambulatory Orders Medication Instructions Recorded Confirmed Atorvastatin [Lipitor] 20 mg ORAL DAILY 01/24/16 08/03/23 Alprazolam [Xanax] 0.25 mg PO DAILY PRN 08/03/23 08/03/23 Latanoprost 0.005% Ophth Drops 1 drops OPTH QPM 08/03/23 08/03/23 [Xalatan Ophth Drops] Letrozole 2.5 mg PO DAILY 08/03/23 08/03/23 Losartan [Cozaar] 100 mg PO DAILY 08/03/23 08/03/23 - Allergies Allergies/Adverse Reactions: Allergies Allergy/AdvReac Type Severity Reaction Status Date / Time codeine AdvReac Unknown Verified 08/03/23 03:01 - Social History Does the pt smoke?: No Smoking Status: Never smoker Does the pt drink ETOH?: Yes Does the pt have substance abuse?: No - POLST Patient has POLST: No PD ED PE NORMAL - Vitals Vital signs reviewed: Yes (wnl) - General General: Alert and oriented X 3, No acute distress, Well developed/nourished, Other - HEENT HEENT: Atraumatic - Neck Neck: Supple, no meningeal sign - Cardiac Cardiac: RRR - Respiratory Respiratory: No respiratory distress, Clear bilaterally - Abdomen Abdomen: Normal bowel sounds - Female Female : Deferred - Rectal Rectal: Deferred - Back Back: No CVA TTP - Derm Derm: Normal color - Extremities Extremities: No deformity - Neuro Neuro: Alert and oriented X 3, court administrator 2-12 intact, No motor deficit, Normal speech Results - Vitals Vitals: Vital Signs - 24 hr 08/03/23 08/03/23 08/03/23 02:45 03:37 05:00 Temperature 36.5 C Heart Rate 89 73 72 Respiratory 16 14 16 Rate Blood Pressure 148/119 H 154/84 H 186/74 H O2 Saturation 100 98 100 Oxygen O2 Source Room air - EKG (time done) 0259 EKG releavant findings:: EKG personally interpreted by author of this note. Relevant findings are: Sinus rhythm with rate 80 bpm. Normal axis. AR prolonged at 222 ms. Normal QRS and QTc intervals. No ST segment elevations or T wave inversions. - Labs Labs: Laboratory Tests 08/03/23 08/03/23 08/03/23 03:18 03:18 03:18 WBC 4.6 L RBC 4.73 Hgb 14.3 Hct 43.4 MCV 91.8 MCH 30.2 MCHC 32.9 RDW 13.2 Plt Count 200 MPV 10.2 Neut # (Auto) 2.4 Lymph # (Auto) 1.4 L [place] # (Auto) 0.5 Eos # (Auto) 0.1 Baso # (Auto) 0.0 Absolute Nucleated RBC 0.00 Nucleated RBC % 0.0 D-Dimer 557.3 H Sodium 141 Potassium 3.9 Chloride 108 Carbon Dioxide 27 Anion Gap 6.0 BUN 22 H Creatinine 0.7 Estimated GFR (MDRD) 82 L Glucose 112 H Calcium 9.9 Total Bilirubin 0.5 AST 18 ALT 24 Alkaline Phosphatase 84 Troponin I High Sens 4.0 B-Natriuretic Peptide Total Protein 7.1 Albumin 4.4 Globulin 2.7 Albumin/Globulin Ratio 1.6 Lipase 322 H 08/03/23 03:18 WBC RBC Hgb Hct MCV MCH MCHC RDW Plt Count MPV Neut # (Auto) Lymph # (Auto) [place] # (Auto) Eos # (Auto) Baso # (Auto) Absolute Nucleated RBC Nucleated RBC % D-Dimer Sodium Potassium Chloride Carbon Dioxide Anion Gap BUN Creatinine Estimated GFR (MDRD) Glucose Calcium Total Bilirubin AST ALT Alkaline Phosphatase Troponin I High Sens B-Natriuretic Peptide 23 Total Protein Albumin Globulin Albumin/Globulin Ratio Lipase PD Medical Decision Making - ED course Complexity details: reviewed results, re-evaluated patient, d/w patient ED course: Patient 73-year-old female presenting with shortness of breath. Afebrile, hemodynamically stable. No respiratory distress noted in exam. Clear aeration in all lung gregg. 100% on room air here in the emergency department. EKG is on above demonstrated a first-degree heart block without indications of acute cardiac ischemia or dysrhythmia. High-sensitivity troponin and beta natruretic peptide were both negative. Mild elevation in D-dimer. CTA chest negative for PE or other intrathoracic pathology. Patient monitored carefully for several hours in the emergency department. At this time will discharge for follow-up with primary care. Clear return precautions given. Departure - Departure Disposition: 01 Home, Self Care Clinical Impression: Dyspnea Qualifiers: Dyspnea type: unspecified Qualified Code(s): R06.00 - Dyspnea, unspecified Comments: Thank you for allowing us to care for you today at [facility]. Today in the emergency department you were evaluated for any possible dangerous or life-threatening medical emergency. All the testing performed in the emergency department today including your EKG, blood work and the CT scan of your chest were all very reassuring. I do want you to follow-up with your primary care doctor soon as possible concerning your symptoms. If it anytime you have new or worsening symptoms please not hesitate to return.
--- NOTE | 2023-08-03 09:07 | CT Report ---
PROCEDURE: ANGIO CHEST W/WO INDICATIONS: rule out PE CONTRAST: Omni 300 100ml TECHNIQUE: After the administration of intravenous contrast, 2 mm axial images were acquired from the pulmonary apices to the posterior costophrenic angles during the arterial phase. In addition, 1 mm lung kernel and 5 mm soft tissue kernel reconstructions were performed. 3-dimensional coronal oblique maximum int ensity projection (MIP) reformats, 8 mm axial MIP, and 5 mm coronal and sagittal MPR reformats were t hen performed through the thorax. For radiation dose reduction, the following was used: automated exp osure control, adjustment of mA and/or kV according to patient size. COMPARISON: CT angiogram chest dated 06/06/2021. FINDINGS: Image quality: Excellent. Large vessels: No filling defects within the opacified pulmonary arteries, accounting for motion and contrast timing. No evidence of acute aortic syndrome or aortic aneurysm. Lungs and pleura: No consolidation. No pleural effusions. No pneumothorax. No suspicious pulmonary n odules which require follow up. Mediastinum: Heart size is normal. No pericardial effusion. No large vessel abnormality. Scattered at heromatous calcifications are present at the thoracic arch. No mediastinal adenopathy by size criteri a. Chest wall and lower neck: Thyroid is unremarkable. No axillary or supraclavicular adenopathy by size . Bones: No aggressive osseous abnormality. Upper Abdomen: Gallstones are partially visualized in the gallbladder fundus. There is a low density upper pole left renal cyst which is partially characterized. IMPRESSION: No pulmonary embolus. Cholelithiasis. Reviewed by: Rina Gallardo MD on 08/03/2023 9:05 AM PDT Approved by: Rina Gallardo MD on 08/03/2023 9:05 AM PDT Station ID: [id number]
== END 2023-08-03 06:09 | disposition home or self-care (01) ==
LOC: ED 02:42
DX: R06.09 Other forms of dyspnea (principal); I10 Essential (primary) hypertension
CPT/HCPCS: 36415; 71275; 80053; 83690; 83880; 84484; 85025; 85379; 93005; 99283; 99284; Q9967

== ENCOUNTER 2023-10-03 06:30 | Outpatient (CLI) | payer MEDICARE, OTHER ==
[2023-10-03 07:36] LABS: ALBUMIN 4.3 g/dL (3.2-5.5); ALBUMIN/GLOBULIN RATIO 1.7 (1.0-2.2); ALKALINE PHOSPHATASE 91 IU/L (42-121); ALT ALANINE AMINOTRANSFERASE 25 IU/L (10-60); AST ASPARTATE AMINOTRANSFERASE 19 IU/L (10-42); BILIRUBIN,TOTAL 0.4 mg/dL (0.2-1.0); BUN - BLOOD UREA NITROGEN 23 mg/dL (6-20); CARBON DIOXIDE - CO2 30 mmol/L (21-32); CHLORIDE 106 mmol/L (101-111); CHOL/HDL RATIO 3.1 (<4.4); CHOLESTEROL 195 mg/dL; CREATININE 0.8 mg/dL (0.6-1.3); GFR - MDRD 71 (>89); GLUCOSE 112 mg/dL (74-104); HDL CHOLESTEROL 62 mg/dL; LDL CHOLESTEROL,CALCULATED 107 mg/dL; LDL/HDL RATIO 1.7 (<4.4); POTASSIUM 4.2 mmol/L (3.5-4.5); SODIUM 141 mmol/L (135-145); TOTAL PROTEIN 6.9 g/dL (6.4-8.9); TRIGLYCERIDES 132 mg/dL (48-352); VLDL CHOLESTEROL 26 mg/dL
[2023-10-03 08:02] LABS: HCT - HEMATOCRIT 44.9 % (37.0-47.0); HGB - HEMOGLOBIN 14.8 g/dL (12.0-16.0); MEAN CORPUSCULAR HEMOGLOBIN 30.1 pg (27.0-31.0); MEAN CORPUSCULAR VOLUME 91.4 fL (81.0-99.0); RED BLOOD COUNT 4.91 10^6/uL (4.20-5.40)
[2023-10-03 10:13] LABS: ESTIMATED AVERAGE GLUCOSE 111 mg/dL (70-100); HEMOGLOBIN A1c% 5.5 % (4.27-6.07)
== END 2023-10-03 06:31 | disposition home or self-care (01) ==
LOC: LAB 06:30
PROVIDERS: ATTEND Internal Medicine
DX: Z00.00 Encounter for general adult medical examination without abnormal findings (principal); I10 Essential (primary) hypertension
CPT/HCPCS: 36415; 80053; 80061; 83036; 83721; 85027

== ENCOUNTER 2024-01-10 10:49 | Outpatient (CLI) | payer MEDICARE, OTHER ==
--- NOTE | 2024-01-10 13:58 | DEXA Report ---
PROCEDURE: Dexa Spine and/or Hip INDICATIONS: POST MENOPAUSAL TECHNIQUE: Dual energy x-ray absorptiometry (DXA) was performed on a [employer] System. Regions measur ed are the AP Spine, femoral neck, and if needed forearm. COMPARISON: 03/25/2021 FINDINGS: Lumbar Spine: Bone Mineral Density: 1.054 g/cm/cm,T score: -1.1, osteopenia. Change from previous 5.0%, significan t Left Femoral Neck: Bone Mineral Density: 0.934 g/cm/cm, T score: -0.7, normal. Left Hip: Bone Mineral Density: 0.925 g/cm/cm,T score: -0.7, normal. Change from previous 2.5%. Not statistical ly significant (T score greater or equal to -1.0: NORMAL) (T score from -1.1 to -2.4: OSTEOPENIA) (T score less than or equal to -2.5 to: OSTEOPOROSIS) Impression: By WHO criteria, this patient has low bone density (osteopenia). Interval statistical increase in bone mineral density of the lumbar spine. No statistical interval ch court in bone mineral density of the hip. Patients with diagnosis of osteoporosis or osteopenia should have regular bone mineral density assess ment. For those eligible for Medicare, routine testing is allowed once every 2 years. Testing frequ ency can be increased for patients who have rapidly progressing disease or for those who are receivin g medical therapy to restore bone mass. Reviewed by: Stephenie Carranza MD on 01/10/2024 1:57 PM PDT Approved by: Stephenie Carranza MD on 01/10/2024 1:57 PM PDT Station ID: [id number]
== END 2024-01-10 10:50 | disposition home or self-care (01) ==
LOC: DI 10:49
PROVIDERS: ATTEND Internal Medicine
DX: M85.88 Other specified disorders of bone density and structure, other site (principal); Z78.0 Asymptomatic menopausal state

== ENCOUNTER 2024-03-05 14:52 | Emergency (ER) | payer MEDICARE, OTHER ==
--- NOTE | 2024-03-05 15:11 | ED Physician Documentation ---
History of Present Illness - Stated complaint Stated Complaint: - Chief complaint Chief Complaint: Abd Pain - History obtained from History obtained from: Patient - Additonal information Additional information: 73-year-old woman with history of lichen sclerosis developed squamous cell carcinoma and had a pelvic lymph node dissection at [place] on the . Starting on Wednesday she developed some increased pain, swelling, and redness in the area and was started on Bactrim. Today one of the areas kind of popped open and some purulent drainage came out. She feels fine without fevers. 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 - Present Medications Home Medications: Ambulatory Orders Medication Instructions Recorded Confirmed Atorvastatin [Lipitor] 20 mg ORAL DAILY 01/24/16 03/05/24 Alprazolam [Xanax] 0.25 mg PO DAILY PRN 08/03/23 03/05/24 Latanoprost 0.005% Ophth Drops 1 drops OPTH QPM 08/03/23 03/05/24 [Xalatan Ophth Drops] Letrozole 2.5 mg PO DAILY 08/03/23 03/05/24 Losartan [Cozaar] 100 mg PO DAILY 08/03/23 03/05/24 Gabapentin [Neurontin] 100 mg PO DAILY 03/05/24 03/05/24 cephALEXin [Keflex] 500 mg PO Q6H #28 cap 03/05/24 - Allergies Allergies/Adverse Reactions: Allergies Allergy/AdvReac Type Severity Reaction Status Date / Time codeine AdvReac Unknown Verified 03/05/24 15:37 - Social History Does the pt smoke?: No Smoking Status: Never smoker Does the pt drink ETOH?: Yes Does the pt have substance abuse?: No - POLST Patient has POLST: No PD ED PE NORMAL - Vitals Vital signs reviewed: Yes (She is resting tachycardia and is hypertensive.) - General General: Alert and oriented X 3, No acute distress - Abdomen Abdomen: Normal bowel sounds, Soft, Non tender - Female Female : Other (Exam done with the Alex dickerson at the bedside. She has significant induration and redness and swelling of the left anterior pubic area with cellulitis and tenderness. There is likely a deep abscess. No current drainage.) Results - Vitals Vitals: Vital Signs - 24 hr 03/05/24 03/05/24 03/05/24 14:54 17:25 18:50 Temperature 36.2 C L 36.6 C Heart Rate 124 H 101 H 100 Respiratory 18 16 16 Rate Blood Pressure 179/100 H 142/98 H 152/69 H O2 Saturation 96 100 100 If not protocol 2 : Oxygen Flow, liters/minute 03/05/24 03/05/24 03/05/24 18:55 19:00 19:15 Temperature 36.6 C 36.6 C 36.6 C Heart Rate 102 H 102 H 90 Respiratory 26 H 24 17 Rate Blood Pressure 111/53 L 101/71 111/95 H O2 Saturation 99 100 100 If not protocol 4 2 : Oxygen Flow, liters/minute 03/05/24 03/05/24 03/05/24 19:30 20:00 20:30 Temperature 36.6 C Heart Rate 91 89 90 Respiratory 18 20 20 Rate Blood Pressure 129/61 133/72 H 142/68 H O2 Saturation 100 98 99 If not protocol : Oxygen Flow, liters/minute Oxygen O2 Source Room air - Labs Labs: Microbiology 03/05/24 18:55 Wound Culture - Preliminary Abscess Laboratory Tests 03/05/24 03/05/24 03/05/24 15:08 15:25 15:25 WBC 10.8 RBC 4.38 Hgb 13.0 Hct 40.5 MCV 92.5 MCH 29.7 MCHC 32.1 RDW 12.7 Plt Count 227 MPV 10.3 Neut # (Auto) 8.9 H Lymph # (Auto) 0.8 L Chambers # (Auto) 1.0 Eos # (Auto) 0.1 Baso # (Auto) 0.0 Absolute Nucleated RBC 0.00 Nucleated RBC % 0.0 Sodium 135 Potassium 4.0 Chloride 101 Carbon Dioxide 25 Anion Gap 9.0 BUN 20 Creatinine 1.0 Estimated GFR (MDRD) 55 L Glucose 217 H Lactic Acid Calcium 10.2 Total Bilirubin 0.4 AST 36 ALT 54 Alkaline Phosphatase 149 H C-Reactive Protein 9.8 H Total Protein 7.1 Albumin 4.1 Globulin 3.0 Albumin/Globulin Ratio 1.4 Urine Color YELLOW Urine Clarity SL. CLOUDY Urine pH 6.0 Ur Specific [place] >=1.030 H Urine Protein 30 H Urine Glucose (UA) NEGATIVE Urine Ketones TRACE Urine Occult Blood NEGATIVE Urine Nitrite NEGATIVE Urine Bilirubin NEGATIVE Urine Urobilinogen 0.2 (NORMAL) Ur Leukocyte Esterase MODERATE H Urine RBC 0-5 Urine WBC 6-10 H Ur Squamous Epith Cells MOD Squamous H Urine Bacteria Few Urine Casts 3-5 Hyaline Casts Urine Mucus Marked Strands Ur Microscopic Review INDICATED Urine Culture Comments NOT INDICATED 03/05/24 15:25 WBC RBC Hgb Hct MCV MCH MCHC RDW Plt Count MPV Neut # (Auto) Lymph # (Auto) Chambers # (Auto) Eos # (Auto) Baso # (Auto) Absolute Nucleated RBC Nucleated RBC % Sodium Potassium Chloride Carbon Dioxide Anion Gap BUN Creatinine Estimated GFR (MDRD) Glucose Lactic Acid 2.1 Calcium Total Bilirubin AST ALT Alkaline Phosphatase C-Reactive Protein Total Protein Albumin Globulin Albumin/Globulin Ratio Urine Color Urine Clarity Urine pH Ur Specific [place] Urine Protein Urine Glucose (UA) Urine Ketones Urine Occult Blood Urine Nitrite Urine Bilirubin Urine Urobilinogen Ur Leukocyte Esterase Urine RBC Urine WBC Ur Squamous Epith Cells Urine Bacteria Urine Casts Urine Mucus Ur Microscopic Review Urine Culture Comments - Rads (name of study) CT of the pelvis, radiologist did not feel there was a drainable fluid collection but there is definitely inflammation to the left pelvic area. Relevant Findings:: Final report received, EMP independent interpretation of test Procedures - Abscess I&D (location) L pelvic Preparation: Lidocaine 1% Incision: Incised with scalpel, Purulent drainage, Loculations broken, Packed, Culture obtained Other: Pt tolerated well - Procedural sedation Sedation prep: Informed consent, Last meal (12p), PE performed, ASA 1 - healthy Sedation Medications: propofol (80 then 40 then 40mg ivp = 160mg total) Mallampati classification: I Patient status during sedation: Unresponsive Sedation recovery: Recovered uneventfully Time in sedation (Minutes): 12 PD Medical Decision Making - ED course ED course: She presents with what looks like a pelvic skin based abscess from a recent surgery there. She went over for CT which the radiologist did not feel had a fluid collection but I was skeptical so she wanted to be sedated and we did that and I did initially a needle aspiration which gross pus came back from so made about a 2 cm incision with a large abscess cavity probed, deloculated packed and cultured. In the interim she had received Ancef IV and also some Ativan for anxiolysis. Labs were notable for borderline leukocytosis and a glucose of 217 with normal lactate. She very much wanted to go home and she does not seem septic and there is no evidence of a necrotizing infection. She was offered admission and discussed with her that given the large abscess in tachycardia probably would for to admission criteria but she wanted to go home and take care of her dog. Advised to return in 2 days for wound check and has a appointment with her surgeon in 4 days. Departure - Departure Disposition: Home, Self Care Clinical Impression: Abscess Condition: Good Record reviewed to determine appropriate education?: Yes Instructions: ED Abscess IandD Prescriptions: cephALEXin [Keflex] 500 mg PO Q6H #28 cap Comments: [facility] [place]. As discussed, return Wednesday for wound check and packing replacement and then you will follow-up with your surgeon on as already scheduled. You can continue the Bactrim/trimethoprim/sulfamethoxazole, We are performing a wound culture, the results should be done in 48-72 hours. If antibiotic change is necessary we will call you. Forms: PCP List Discharge Date/Time: 03/05/24 20:38
[2024-03-05 15:18] LABS: BILIRUBIN,URINE NEGATIVE (NEGATIVE); GLUCOSE, URINE (UA) NEGATIVE (NEGATIVE); KETONES,URINE (UA) TRACE mg/dL (NEGATIVE); LEUKOCYTE ESTERASE, URINE MODERATE (NEGATIVE); NITRITE,URINE NEGATIVE (NEGATIVE); OCCULT BLOOD,URINE NEGATIVE (NEGATIVE); PROTEIN,URINE 30 mg/dL (NEGATIVE); UROBILINOGEN,URINE 0.2 (NORMAL) E.U./dL (NORMAL)
[2024-03-05 15:19] LABS: CLARITY,URINE SL. CLOUDY (CLEAR)
[2024-03-05 15:25] LABS: BACTERIA,URINE Few /HPF (None Seen); CASTS, URINE 3-5 Hyaline Casts /LPF; MUCUS,URINE Marked Strands; RBC,URINE 0-5 /HPF (0-5); SQUAMOUS EPITHELIAL CELL,UR MOD Squamous (<= Few)
[2024-03-05] MEDS: SODIUM CHLORIDE 0.9% 1,000 ML IV STA (15:35)
[2024-03-05] MEDS: ceFAZolin (2G) 2 GM in SODIUM CHLORIDE 0.9% 100ML 100 ML IV STA (15:36)
[2024-03-05 15:43] LABS: BASOPHILS % (AUTO) 0.4 %; EOSINOPHILS # (AUTO) 0.1 10^3/uL (0.0-0.7); EOSINOPHILS % (AUTO) 0.8 %; HCT - HEMATOCRIT 40.5 % (37.0-47.0); LYMPHOCYTES # (AUTO) 0.8 10^3/uL (1.5-3.5); LYMPHOCYTES % (AUTO) 7.3 %; MEAN CORPUSCULAR HEMOGLOBIN 29.7 pg (27.0-31.0); MEAN CORPUSCULAR HGB CONC 32.1 g/dL (32.0-36.0); MEAN CORPUSCULAR VOLUME 92.5 fL (81.0-99.0); MEAN PLATELET VOLUME 10.3 fL (7.9-10.8); MONOCYTES % (AUTO) 8.8 %; NEUTROPHILS # (AUTO) 8.9 10^3/uL (1.5-6.6); NEUTROPHILS % (AUTO) 82.2 %; PLT - PLATELET COUNT 227 10^3/uL (130-450); RED BLOOD COUNT 4.38 10^6/uL (4.20-5.40); RED CELL DISTRIBUTION WIDTH 12.7 % (12.0-15.0); WHITE BLOOD COUNT 10.8 x10^3/uL (4.8-10.8)
[2024-03-05 16:02] LABS: ALBUMIN 4.1 g/dL (3.2-5.5); ALBUMIN/GLOBULIN RATIO 1.4 (1.0-2.2); BILIRUBIN,TOTAL 0.4 mg/dL (0.2-1.0); CALCIUM 10.2 mg/dL (8.5-10.3); CRP - C-REACTIVE PROTEIN 9.8 mg/dL (<0.5); TOTAL PROTEIN 7.1 g/dL (6.4-8.9)
[2024-03-05] MEDS ORDERED: iohexoL-300 100 ML VIAL ONE (16:20)
[2024-03-05] MEDS: iohexoL-300 100 ML VIAL IVP ONE (16:34)
--- NOTE | 2024-03-05 17:54 | CT Report ---
PROCEDURE: Pelvis W INDICATIONS: L pelvic wall infection, IV only CONTRAST: 100ml omni 300 TECHNIQUE: After the administration of intravenous contrast, a CT scan of the pelvis was performed. Images were recorded and evaluated at appropriate window settings. Reformats: axial MIP of the chest, coronal an d sagittal. For radiation dose reduction, the following was used: automated exposure control, adjustm ent of mA and/or kV according to patient size. COMPARISON: None FINDINGS: Image quality: Mildly degraded by patient motion artifact. Bowel and peritoneum: No bowel distension. No pathologic free fluid. Vessels: No infrarenal aortic aneurysm. Reproductive organs: Unremarkable. Bladder: No abnormal wall thickening, accounting for underdistention. Pelvic lymph nodes: Enlarged right superficial inguinal lymph node, possibly reactive. No deep pelvic lymphadenopathy. Bones: No aggressive osseous abnormality. Other: Postsurgical changes along the left pelvic sidewall. There is soft tissue density in the super ficial left subcutaneous tissues in the inguinal region. No rim-enhancing fluid collection identified . IMPRESSION: Soft tissue thickening in the anterior subcutaneous tissues in the left superficial inguinal region r epresent postsurgical changes versus phlegmon. No drainable fluid collection or rim-enhancing collect ion to suggest abscess. Reviewed by: Radha Carver MD, PhD on 03/05/2024 4:52 PM AKDIVYA Approved by: Radha Carver MD, PhD on 03/05/2024 4:52 PM AKDT Station ID: [id number]
[2024-03-05] MEDS: LORazepam 2 MG/ML VIAL IVP STA (18:32)
[2024-03-05] MEDS: PROPOFOL 200 MG/20 ML VIAL IVP STA (18:33)
[2024-03-05 20:43] VITALS: BP 142/68; O2SAT 99
== END 2024-03-05 20:38 | disposition home or self-care (01) ==
LOC: ED 14:52
DX: L02.211 Cutaneous abscess of abdominal wall (principal); L03.311 Cellulitis of abdominal wall; R00.0 Tachycardia, unspecified; I10 Essential (primary) hypertension; E78.00 Pure hypercholesterolemia, unspecified; Z98.890 Other specified postprocedural states
CPT/HCPCS: 10061; 36415; 72193; 80053; 81001; 83605; 85025; 86140; 87040; 87070; 87077; 87181; 87205; 96365; 99152; 99285; J2060; Q9967; 56405; 81003; 87086

== ENCOUNTER 2024-03-07 09:12 | Emergency (ER) | payer MEDICARE, OTHER ==
[2024-03-07 09:58] VITALS: BP 135/101; O2SAT 100
--- NOTE | 2024-03-07 11:34 | ED Physician Documentation ---
PD HPI WOUND RECHECK - Stated complaint Stated Complaint: FOLLOW UP/DRESSING CHANGE - Chief complaint Chief Complaint: Wound - Histroy obtained from History obtained from: Patient - Additional information Additional information: I/D GROIN ABSCESS 2 DAYS AGO AND ASKED TO RETURN FOR WOUND CHECK. dOING WELL, SOME DRAINAGE, MINIMAL PAIN, NO FEVER. 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 - Present Medications Home Medications: Ambulatory Orders Medication Instructions Recorded Confirmed Atorvastatin [Lipitor] 20 mg ORAL DAILY 01/24/16 03/05/24 Alprazolam [Xanax] 0.25 mg PO DAILY PRN 08/03/23 03/05/24 Latanoprost 0.005% Ophth Drops 1 drops OPTH QPM 08/03/23 03/05/24 [Xalatan Ophth Drops] Letrozole 2.5 mg PO DAILY 08/03/23 03/05/24 Losartan [Cozaar] 100 mg PO DAILY 08/03/23 03/05/24 Gabapentin [Neurontin] 100 mg PO DAILY 03/05/24 03/05/24 cephALEXin [Keflex] 500 mg PO Q6H #28 cap 03/05/24 - Allergies Allergies/Adverse Reactions: Allergies Allergy/AdvReac Type Severity Reaction Status Date / Time codeine AdvReac Unknown Verified 03/07/24 09:56 - Social History Does the pt smoke?: No Smoking Status: Never smoker Does the pt drink ETOH?: Yes Does the pt have substance abuse?: No - Immunizations Immunizations are current?: No - POLST Patient has POLST: No PD ED PE NORMAL - Vitals Vital signs reviewed: Yes - General General: Alert and oriented X 3, No acute distress - Female Female : Cpa Tax present (SEBASTIAN Nguyễn RN), Other (L GROIN PACKING REMOVED. STILL CELLULITIC BUT IMPROVED. NOT MUCH PURULENCE. PACKING REPLACED WITH 1/2 INCH PACKING.) - Neuro Neuro: Alert and oriented X 3 Results - Vitals Vitals: Vital Signs - 24 hr 03/07/24 09:50 Temperature 36.5 C Heart Rate 92 Respiratory 15 Rate Blood Pressure 135/101 H O2 Saturation 100 Oxygen O2 Source Room air PD Medical Decision Making - ED course ED course: IMPROVING INFECTION POST OP L GROIN ABSCESS REPACKED SHE IS SEEING HER SURGEON IN 2 DAYS. Departure - Departure Disposition: Home, Self Care Clinical Impression: Wound check, abscess Condition: Good Instructions: ED Abscess IandD Comments: THE CULTURE FROM 2 DAYS AGO IS GROWING STAPH AUREUS, A COMMON CAUSE OF SKIN INFECTIONS. IT IS NOT MRSA. TAKE CULTURE AND CT RESULTS AND SEE YOUR ONCOLOGIST WEDNESDAY SCHEDULED. OK TO SHOWER, KEEP PACKING IN. CONTINUE CURRENT ANTIBIOTICS Forms: PCP List
== END 2024-03-07 11:39 | disposition home or self-care (01) ==
LOC: ED 09:12
DX: Z48.00 Encounter for change or removal of nonsurgical wound dressing (principal); L03.314 Cellulitis of groin; L02.214 Cutaneous abscess of groin
CPT/HCPCS: 99281